=== PATIENT | female | born 1990 | race Caucasian/White ===

== ENCOUNTER 2020-03-17 10:59 | Emergency (ER) | payer OTHER ==
[2020-03-17 11:13] VITALS: BP 132/61; PULSE 89; TEMP 99; BMI 35.0
[2020-03-17] MEDS ORDERED: ONDANSETRON 4 MG/2 ML VIAL IVPUSH ONE (11:26)
[2020-03-17] MEDS ORDERED: ONDANSETRON 4 MG/2 ML VIAL ONE (11:27)
[2020-03-17] MEDS ORDERED: SODIUM CHLORIDE 0.9% 500 ML INFUS.BAG IV ONE (11:27)
[2020-03-17 11:56] LABS: BASO % 0.4 % (0-2.0); HEMATOCRIT 35.6 % (32.4-45.2); HEMOGLOBIN 11.7 GM/dL (10.7-15.3); LYMPH % 7.7 % (8-40); MCH 27.3 pg (25.7-33.7); MCHC 32.9 g/dl (32.0-36.0); MEAN PLT VOLUME 9.4 fl (7.5-11.1); NEUT % 83.9 % (42.8-82.8); PLATELET COUNT 184 K/MM3 (134-434); RBC 4.29 M/mm3 (3.60-5.2); RDW 13.3 % (11.6-15.6); WHITE BLOOD COUNT 6.3 K/mm3 (4.0-10.0)
[2020-03-17 11:57] LABS: URINE APPEARANCE CLEAR; URINE BILIRUBIN NEGATIVE (NEGATIVE); URINE COLOR YELLOW; URINE GLUCOSE (UA) NEGATIVE (NEGATIVE); URINE KETONE NEGATIVE (NEGATIVE); URINE LEUK ESTERASE NEGATIVE (NEGATIVE); URINE NITRITE NEGATIVE (NEGATIVE); URINE PROTEIN NEGATIVE (NEGATIVE); URINE UROBILINOGEN 0.2 mg/dL (0.2-1.0)
[2020-03-17 12:21] LABS: ALBUMIN 4.2 g/dl (3.4-5.0); BILIRUBIN,TOTAL 0.6 mg/dL (0.2-1); BLOOD UREA NITROGEN 13.8 mg/dL (7-18); CALCIUM 9.5 mg/dL (8.5-10.1); CREATININE 0.8 mg/dL (0.55-1.3); POTASSIUM 3.8 mmol/L (3.5-5.1); TOT PROT 7.8 g/dl (6.4-8.2)
--- NOTE | 2020-03-17 12:54 | PDOC ---
History of Present Illness - General Chief Complaint: Nausea Stated Complaint: NAUSEA Time Seen by Provider: 03/17/20 11:16 - History of Present Illness Initial Comments: 03/17/20 12:52 29-year-old female with a psych history presents for evaluation of nausea x3 days with intermittent episodes of vomiting. She takes at home Zofran prescribed to her by her primary care physician. She is had 2 or 3 episodes of diarrhea over the last few days as well. Minimal relief with Zofran at home. No systemic symptoms Past History - Medical History Allergies/Adverse Reactions: Allergies Allergy/AdvReac Type Severity Reaction Status Date / Time haloperidol [From Haldol] AdvReac Severe Difficulty Verified 03/17/20 11:12 Breathing haloperidol lactate AdvReac Severe Difficulty Verified 03/17/20 11:12 [From Haldol] Breathing Home Medications: Ambulatory Orders Aripiprazole [Abilify Maintena] 1 vial IM MONTHLY 03/21/16 Bictegrav/Emtricit/Tenofov Ala [Biktarvy 50-200-25 mg Tablet] 1 tab PO DAILY #30 tablet 12/05/19 Bisacodyl [Dulcolax -] 1 - 3 cap PO HS #30 tablet. MDD 3 12/05/19 Ferrous Sulfate 1 tab PO TID #90 tablet 12/05/19 Ondansetron [Zofran -] 1 tab PO DAILY #30 tablet 12/05/19 Anemia: Yes Asthma: No Cancer: No Cardiac Disorders: No CVA: No COPD: No CHF: No Dementia: No Diabetes: No GI Disorders: No Disorders: No HTN: No Hypercholesterolemia: No Liver Disease: No Psychiatric Problems: Yes (bipolar) Seizures: No Thyroid Disease: No - Psycho-Social/Smoking History Smoking History: Never smoked Have you smoked in the past 12 months: No Number of Cigarettes Smoked Daily: 1 If you are a former smoker, when did you quit?: 2013 Cigars Per Day: 0 Review of Systems - Review of Systems Constitutional: No: Chills, Diaphoresis, Fever, Night Sweats ABD/GI: Yes: Diarrhea, Nausea, Poor Appetite, Vomiting. No: Blood Streaked Bowels, Rectal Bleeding *Physical Exam - Vital Signs Last Vital Signs Temp Pulse Resp BP Pulse Ox 99.0 F 89 18 132/61 98 03/17/20 11:10 03/17/20 11:10 03/17/20 11:10 03/17/20 11:10 03/17/20 11:10 - Physical Exam 03/17/20 12:53 GENERAL: The patient is awake, alert, and fully oriented, in no acute distress. HEAD: Normal with no signs of trauma. EYES: sclera anicteric, conjunctiva clear. ENT: Ears normal tympanic membranes normal oropharynx clear uvula midline NECK: Normal range of motion LUNGS: Breath sounds equal, clear to auscultation bilaterally. No wheezes, and no crackles. HEART: S1 and S2 without murmur, rub or gallop. ABDOMEN: Soft, nontender, normoactive bowel sounds. No guarding, no rebound. No masses. EXTREMITIES: Normal range of motion, no edema. No clubbing or cyanosis. No cords, erythema, or tenderness. NEUROLOGICAL: Cranial nerves II through XII grossly intact. PSYCH: Normal mood, normal affect. SKIN: Warm, Dry, normal turgor, no rashes or lesions noted. ED Treatment Course - LABORATORY CBC & Chemistry Diagram: 03/17/20 11:38 03/17/20 11:38 - ADDITIONAL ORDERS Additional order review: Laboratory Results 03/17/20 03/17/20 03/17/20 11:38 11:38 11:38 Sodium 136 Potassium 3.8 Chloride 105 Carbon Dioxide 26 Anion Gap 4 L BUN 13.8 Creatinine 0.8 Est GFR (CKD-EPI)AfAm 113.86 Est GFR (CKD-EPI)NonAf 98.24 Random Glucose 90 Calcium 9.5 Total Bilirubin 0.6 AST 14 L ALT 28 Alkaline Phosphatase 71 Total Protein 7.8 Albumin 4.2 Lipase 97 Serum , Qual Negative Urine Color Yellow Urine Appearance Clear Urine pH 5.0 Ur Specific [place] 1.009 L Urine Protein Negative Urine Glucose (UA) Negative Urine Ketones Negative Urine Blood Negative Urine Nitrite Negative Urine Bilirubin Negative Urine Urobilinogen 0.2 Ur Leukocyte Esterase Negative 03/17/20 11:38 RBC 4.29 MCV 83.0 MCHC 32.9 RDW 13.3 MPV 9.4 D Neutrophils % 83.9 H Lymphocytes % 7.7 L D Monocytes % 7.0 Eosinophils % 1.0 Basophils % 0.4 - Medications Given in the ED: ED Medications Discontinued Medications Generic Name Dose Route Start Last Admin Trade Name Freq PRN Reason Stop Dose Admin Ondansetron HCl 4 mg 03/17/20 11:26 03/17/20 11:37 Zofran Injection IVPUSH 03/17/20 11:27 4 mg ONCE ONE Administration Sodium Chloride 1,000 ml 03/17/20 11:27 03/17/20 11:37 Normal Saline - IV 03/17/20 11:28 1,000 ml ONCE ONE Administration Medical Decision Making - Medical Decision Making 03/17/20 12:53 Benign examination most likely a viral gastroenteritis supportive care with fluids and Zofran at home. Follow-up with primary care physician. I have reviewed the pathophysiology with the patient. They are in agreement with the treatment plan all questions were answered to their satisfaction. Understanding for follow-up without fail was also conveyed to the patient. Again they are in agreement. Discharge - Discharge Information Problems reviewed: Yes Clinical Impression/Diagnosis: Gastroenteritis Condition: Stable - Admission No - Follow up/Referral Referrals: Marissa Molina MD [Staff Physician] - - Patient Discharge Instructions Additional Instructions: Return to the emergency room for worsening symptoms. Please without fail follow-up with your primary care physician in 1 to 2 days for further evaluation and treatment options. Clear fluids and bland diet until symptoms subside. Continue with your at home Zofran as prescribed by your primary care physician. - Post Discharge Activity
== END 2020-03-17 13:00 | disposition home or self-care (01) ==
LOC: JER 10:59
PROC: 3E033GC Introduction of Other Therapeutic Substance into Peripheral Vein, Percutaneous Approach (ICD-10-PCS; principal; 2020-03-17)
DX: K52.9 Noninfective gastroenteritis and colitis, unspecified (principal)
CPT/HCPCS: 36415; 80053; 81003; 83690; 84703; 85025; 87086; 99284-25

== ENCOUNTER 2020-03-19 05:50 | Emergency (ER) | payer OTHER ==
[2020-03-19 06:16] VITALS: BMI 35.5
[2020-03-19] MEDS ORDERED: ACETAMINOPHEN 1000 MG/100 ML VIAL (NON FORMULARY) IVPB ONE (07:33)
[2020-03-19] MEDS ORDERED: SODIUM CHLORIDE 1,000 ML IV STA (07:33)
[2020-03-19] MEDS ORDERED: ACETAMINOPHEN INJECTION 100 ML IVPB ONE (07:43)
[2020-03-19] MEDS ORDERED: FAMOTIDINE 20 MG/50 ML IVPB 20 MG/50 ML MG IVPB ONE (07:55)
[2020-03-19 07:59] LABS: BASO % 0.5 % (0-2.0); EOS % 0.4 % (0-4.5); HEMATOCRIT 37.4 % (32.4-45.2); HEMOGLOBIN 12.7 GM/dL (10.7-15.3); MCH 28.5 pg (25.7-33.7); MCHC 34.1 g/dl (32.0-36.0); MEAN CELL VOLUME 83.6 fl (80-96); MEAN PLT VOLUME 9.5 fl (7.5-11.1); MONO % 5.1 % (3.8-10.2); PLATELET COUNT 162 K/MM3 (134-434); RBC 4.47 M/mm3 (3.60-5.2); RDW 13.5 % (11.6-15.6); WHITE BLOOD COUNT 6.5 K/mm3 (4.0-10.0)
--- NOTE | 2020-03-19 08:06 | PDOC ---
History of Present Illness - General Chief Complaint: Cold Symptoms Stated Complaint: FEVER Time Seen by Provider: 03/19/20 07:25 - History of Present Illness Initial Comments: 29 yo female with PMH of HIV (CD4 count she believes in 300s prior note says 400s), Bipolar disorder, and prior coming in with fever for the past two days. Pt explains she was in the ED two days ago for nausea and vomitting, was diagnosed with gastroenteritis, and felt better and went home. That night she says that she had a fever of 101.7 with copious diarrhea. Pt also explains that she had ten episodes of yellow billious diarrea last night, but denies black stool, bloody stool, abdominal pain or any episodes of emesis since Sun. Pt has taken motrin for sxs but she states that her sxs have not improved. Pt also explains that she has had a COVID test yday to rule out COVID but will only get results in five days. Pt denies chest pain, sick contacts, SOB, dyspnea on exertion, cough, or current emesis. PMH: HIV Bipolar PSH: (3 years ago) Allergies: Haldol (tardive dyskinesia) Social: rare alcohol use, denies smoking or drugs; pt practices sex only with fiance PCP: Dr. Maria L Hernández 03/19/20 07:58 Past History - Medical History Allergies/Adverse Reactions: Allergies Allergy/AdvReac Type Severity Reaction Status Date / Time haloperidol [From Haldol] AdvReac Severe Difficulty Verified 03/19/20 06:08 Breathing haloperidol lactate AdvReac Severe Difficulty Verified 03/19/20 06:08 [From Haldol] Breathing Home Medications: Ambulatory Orders Aripiprazole [Abilify Maintena] 1 vial IM MONTHLY 03/21/16 Bictegrav/Emtricit/Tenofov Ala [Biktarvy 50-200-25 mg Tablet] 1 tab PO DAILY #30 tablet 12/05/19 Bisacodyl [Dulcolax -] 1 - 3 cap PO HS #30 tablet.dr GODDARD 3 12/05/19 Ferrous Sulfate 1 tab PO TID #90 tablet 12/05/19 Ondansetron [Zofran -] 1 tab PO DAILY #30 tablet 12/05/19 Famotidine [Pepcid] 20 mg PO DAILY 14 Days #14 tablet 03/19/20 Anemia: Yes Asthma: No Cancer: No Cardiac Disorders: No CVA: No COPD: No CHF: No Dementia: No Diabetes: No GI Disorders: No Disorders: No HTN: No Hypercholesterolemia: No Liver Disease: No Psychiatric Problems: Yes (bipolar) Seizures: No Thyroid Disease: No - Immunization History Immunization Up to Date: Yes - Psycho-Social/Smoking History Smoking History: Never smoked Have you smoked in the past 12 months: No Number of Cigarettes Smoked Daily: 1 If you are a former smoker, when did you quit?: 2012 Cigars Per Day: 0 Information on smoking cessation initiated: No - Substance Abuse Hx (Audit-C & DAST Scrn) How often the patient has a drink containing alcohol: Never Score: In Men: 4 or > Positive; In Women: 3 or > Positive: 0 Screen Result (Pos requires Nsg. Audit-10AR): Negative In the last yr the pt used illegal drug/Rx for NonMed reason: No Score: Yes response is considered Positive: 0 Screen Result (Positive result requires Nsg. DAST-10): Negative Review of Systems - Review of Systems Comments:: General: FEVER HEENT: No change in vision. NO ear pain or discharge. No sore throat. No rhinorrhea CV: NO chest pain, SOB Resp: No cough, wheeze, or hemoptysis GI: No current nausea or vomittting. Positive for diarrhea : No dysuria, frequency or change in urination MSK: NO joint or muscle swelling pain. NO neck or back pain Endocrine: No change in weight Hematological: NO history of blood clots Skin: no rashes 03/19/20 08:06 *Physical Exam - Vital Signs Last Vital Signs Temp Pulse Resp BP Pulse Ox 101.0 F H 122 H 20 124/73 100 03/19/20 06:09 03/19/20 06:09 03/19/20 06:09 03/19/20 06:09 03/19/20 06:09 - Physical Exam General: Awake, alert, and in NAD Head: NCAT Eyes: PERRLA EOMI ENT: hearing grossly intact, dry mucosa Neck: Normal ROM, Lungs: CTA bilaterally no wheezes rales or rhonci Heart: Normal S1 S2 no murmurs rubs or gallops Adomen: Normal bowel sounds in all four quadrants. MILD TENDERNESS to palpation on epigastric area Ext: Normal ROM, NO edema, clubbing or cyanosis NEURO: CN 2-12 grossly intact. Normal speech normal gait Skin. Warm dry no rashes 03/19/20 08:10 ED Treatment Course - LABORATORY CBC & Chemistry Diagram: 03/19/20 06:37 03/19/20 06:37 - Medications Given in the ED: ED Medications Discontinued Medications Generic Name Dose Route Start Last Admin Trade Name Claudia PRN Reason Stop Dose Admin Acetaminophen 1,000 mg 03/19/20 07:33 03/19/20 07:49 Ofirmev Injection - IVPB 03/19/20 07:34 1,000 mg ONCE ONE Administration Medical Decision Making - Medical Decision Making Assesment: Gastroenteritis COVID UTI cholecystitis Plan: CBC CMP Blood cultures UA CXR 29 yo pmh HIV, bipolar and C section complaining of fever and diarrhea for past two days. Pt will be given full sepsis workup, give tylenol, fluids, and pepcid. Will recheck labs and reasses pt. 03/19/20 09:13 Pt labs came back normal. Pt is stable, feels better, was able to tolerate PO challenge, and is ready for discharge. Informed of all lab results. Given follow up instructions and strict return precautions. Patient expressed understanding and agreed to plan. Discharge - Discharge Information Problems reviewed: Yes Clinical Impression/Diagnosis: Generalized abdominal pain Nausea & vomiting Qualifiers: Vomiting type: unspecified Vomiting Intractability: non-intractable Qualified Code(s): R11.2 - Nausea with vomiting, unspecified Condition: Improved Disposition: HOME - Admission No - Additional Discharge Information Prescriptions: Famotidine [Pepcid] 20 mg PO DAILY 14 Days #14 tablet - Follow up/Referral Referrals: Mary Hernández, FORENSIC SCIENCE TECHNICIAN [Primary Care Provider] - - Patient Discharge Instructions Patient Printed Discharge Instructions: [facility] COVID-19 Isolation Protocol, Viral Gastroenteritis Additional Instructions: You were seen in the ED for complaints of fever and diarrhea In the ED you were evaluated with CBC, CMP, UA and Blood culture. You were also given pepcid and tylenol. There does not appear to be an acute need for immediate hospitalization. For you fever take 325 mg-1000mg every 6-8hrs as needed max 4000mg/24 hours For stomach pain take Pepcid (famotidine) 20mg will give you prescription for you to knot picker cloth at pharmacy You are advised to follow up with you PCP within 1 week. Return to the ED - intractable vomitting - Stiff neck - unable to tolerate food or water - blood in emesis or bowel movements - severe headache - Chest pain or SOB If you think you have an emergency call for medical help right away; - Post Discharge Activity
[2020-03-19 08:08] LABS: EPI CELLS >36 /uL (0-25.1); HYALINE CASTS 2 /uL (0-3.1); URINE APPEARANCE CLOUDY; URINE BACTERIA 711 /uL (0-1359); URINE BILIRUBIN NEGATIVE (NEGATIVE); URINE COLOR YELLOW; URINE GLUCOSE (UA) NEGATIVE (NEGATIVE); URINE KETONE NEGATIVE (NEGATIVE); URINE LEUK ESTERASE TRACE (NEGATIVE); URINE NITRITE NEGATIVE (NEGATIVE); URINE PROTEIN TRACE (NEGATIVE); URINE RBC 5 /uL (0-23.9); URINE UROBILINOGEN 0.2 mg/dL (0.2-1.0); URINE WBC 16 /uL (0-25.8)
--- NOTE | 2020-03-19 08:13 | PDOC ---
Attending Attestation - Resident Resident Name: GersonferozJama - ED Attending Attestation I have performed the following: I have examined & evaluated the patient, The case was reviewed & discussed with the resident, I agree w/resident's findings & plan, Exceptions are as noted - HPI HPI: 03/19/20 08:14 29y F hx of HIV (CD4 in 300s VRL undetectable), bipolar do presens with complaint of fever x 2 days. pt notes n/v jocelyn started appox 1 week ago followed by diarhea and fever the last 3 days. The patient has had no known sick contacts or recent travel or family members have been healthy. Patient denies any other symptoms including chest pain, shortness of breath, abdominal pain, blood per rectum, melena, dysuria, urinary frequency. Patient has been taking Motrin for her fever without significant improvement. Patient had seen her doctor at [facility] and had a COVID test yesterday but does not yet know the results. - Physicial Exam PE: 03/19/20 08:16 Exam GENERAL: The patient is awake, alert, and fully oriented, Nontoxic - in no acute distress. HEAD: Normocephalic, atraumatic. EYES: extraocular movements intact, sclera anicteric, conjunctiva clear. ENT: Normal voice, Moist mucous membranes. NECK: Normal range of motion, supple LUNGS: Breath sounds equal, clear to auscultation bilaterally. No wheezes, no rhonchi, no rales. HEART: slightly tachycardic, normal S1 and S2 without murmur, rub or gallop. ABDOMEN: Soft, nontender, No guarding, no rebound. No CVA tenderness EXTREMITIES: Normal range of motion, no edema. NEUROLOGICAL: No facial assymetry, Normal speech, PSYCH: Normal mood, normal affect. SKIN: hot to touch, Dry, normal turgor, - Medical Decision Making 03/19/20 08:16 suspect gastroenteritis. pt appears well otherwise. covid testing from the [facility] from yesterday no abd tendenress to suggest acute intrabdominal surgical process will give tlenol/fluids for sx releif screening labs will reassess 03/19/20 08:20 03/19/20 09:07 pts labs reviewed ua likel contaminated - no urinary sx, and high epitihelial cells. will reasess, po challenge, if tolerates anticipate dc with outptient fu Discharge - Discharge Information Problems reviewed: Yes Clinical Impression/Diagnosis: Generalized abdominal pain Nausea & vomiting Qualifiers: Vomiting type: unspecified Vomiting Intractability: non-intractable Qualified Code(s): R11.2 - Nausea with vomiting, unspecified Condition: Improved Disposition: HOME - Additional Discharge Information Prescriptions: Famotidine [Pepcid] 20 mg PO DAILY 14 Days #14 tablet - Follow up/Referral Referrals: Mary Hernández, HR ANALYST [Primary Care Provider] - - Patient Discharge Instructions Patient Printed Discharge Instructions: Viral Gastroenteritis, [facility] COVID-19 Isolation Protocol Additional Instructions: You were seen in the ED for complaints of fever and diarrhea In the ED you were evaluated with CBC, CMP, UA and Blood culture. You were also given pepcid and tylenol. There does not appear to be an acute need for immediate hospitalization. For you fever take 325 mg-1000mg every 6-8hrs as needed max 4000mg/24 hours For stomach pain take Pepcid (famotidine) 20mg will give you prescription for you to leaf size picker at pharmacy You are advised to follow up with you PCP within 1 week. Return to the ED - intractable vomitting - Stiff neck - unable to tolerate food or water - blood in emesis or bowel movements - severe headache - Chest pain or SOB If you think you have an emergency call for medical help right away; - Post Discharge Activity
[2020-03-19 08:29] LABS: ALBUMIN 4.1 g/dl (3.4-5.0); BILIRUBIN,TOTAL 0.6 mg/dL (0.2-1); BLOOD UREA NITROGEN 10.9 mg/dL (7-18); CALCIUM 8.8 mg/dL (8.5-10.1); CREATININE 0.9 mg/dL (0.55-1.3); POTASSIUM 3.8 mmol/L (3.5-5.1); TOT PROT 8.1 g/dl (6.4-8.2)
[2020-03-19 09:14] VITALS: BP 108/60; PULSE 83; TEMP 98.3
== END 2020-03-19 10:18 | disposition home or self-care (01) ==
LOC: JER 05:50
PROC: 3E033NZ Introduction of Analgesics, Hypnotics, Sedatives into Peripheral Vein, Percutaneous Approach (ICD-10-PCS; principal; 2020-03-19)
PROC: 3E033GC Introduction of Other Therapeutic Substance into Peripheral Vein, Percutaneous Approach (ICD-10-PCS; 2020-03-19)
PROC: 3E0337Z Introduction of Electrolytic and Water Balance Substance into Peripheral Vein, Percutaneous Approach (ICD-10-PCS; 2020-03-19)
DX: R10.84 Generalized abdominal pain (principal); R11.2 Nausea with vomiting, unspecified
CPT/HCPCS: 36415; 80053; 81003; 83605; 84703; 85025; 86850; 86900; 86901; 87040; 87086; 99285-25; J0131

== ENCOUNTER 2021-03-16 18:17 | Emergency (ER) | payer OTHER ==
[2021-03-16 18:23] VITALS: BP 144/74; PULSE 90; TEMP 98.4; BMI 37.4
[2021-03-16] MEDS ORDERED: KETOROLAC TROMETHAMINE 60 MG/2 ML VIAL IM ONE (18:54)
[2021-03-16] MEDS ORDERED: LIDOCAINE 5% TOPICAL PATCH TP ONE (18:55)
[2021-03-16] MEDS ORDERED: CYCLOBENZAPRINE HCL 10 MG TABLET (FP) PO ONE (18:55)
[2021-03-16] MEDS ORDERED: KETOROLAC TROMETHAMINE 30 MG/1 ML VIAL ONE (18:57)
[2021-03-16] MEDS ORDERED: CYCLOBENZAPRINE HCL 10 MG TABLET (FP) ONE (18:57)
== END 2021-03-16 20:10 | disposition home or self-care (01) ==
LOC: JERFT 18:17
PROC: 3E0233Z Introduction of Anti-inflammatory into Muscle, Percutaneous Approach (ICD-10-PCS; principal; 2021-03-16)
DX: M54.2 Cervicalgia (principal)
CPT/HCPCS: 72040-TC; 72070-TC-FY; 96372; 99284-25

== ENCOUNTER 2021-06-24 16:18 | Emergency (ER) | payer OTHER ==
[2021-06-24 16:40] VITALS: BP 126/82; PULSE 82; TEMP 98.6; BMI 36.3
== END 2021-06-24 18:34 | disposition home or self-care (01) ==
LOC: JER 16:18
DX: N93.9 Abnormal uterine and vaginal bleeding, unspecified (principal)
CPT/HCPCS: 99283-25

== ENCOUNTER 2022-04-17 04:18 | Day surgery (SDC) | payer OTHER ==
[2022-04-17] MEDS ORDERED: BUPIVACAINE HCL/PF 0.5% (5MG/ML) 10 ML VIAL ONE (13:41)
[2022-04-17] MEDS ORDERED: MIDAZOLAM HCL 2 MG/2 ML SINGLE DOSE VIAL ONE (15:55)
[2022-04-17] MEDS ORDERED: PROPOFOL 20 ML ONE ×2 (15:55→16:12)
[2022-04-17] MEDS ORDERED: ROCURONIUM BROMIDE 50 MG/5 ML SYRINGE ONE (15:55)
[2022-04-17] MEDS ORDERED: ceFAZolin SODIUM 1 GM VIAL IVPB ONE (16:20)
[2022-04-17] MEDS ORDERED: BUPIVACAINE HCL/PF 0.5% (5MG/ML) 10 ML VIAL IJ ONE (17:25)
[2022-04-17] MEDS ORDERED: ONDANSETRON 4 MG/2 ML VIAL IVPUSH PRN ×2 (17:36→17:50)
[2022-04-17] MEDS ORDERED: LACTATED RINGERS SOLUTION 1,000 ML IV SCH (17:45)
[2022-04-17] MEDS ORDERED: IBUPROFEN 800 MG/8 ML IJ IVPB PRN (17:50)
[2022-04-17] MEDS ORDERED: SIMETHICONE 80 MG TAB.CHEW (FP) PO PRN (17:50)
[2022-04-17] MEDS ORDERED: KETOROLAC TROMETHAMINE 30 MG/1 ML VIAL IVPUSH PRN (17:50)
[2022-04-17] MEDS ORDERED: oxyCODONE HCL 5 MG TABLET PO PRN (17:50)
[2022-04-17] MEDS ORDERED: ARIPIPRAZOLE IM SCH (18:00)
[2022-04-17 18:50] VITALS: RESP 18
[2022-04-17] MEDS: ACETAMINOPHEN 325 MG TABLET (FP) PO SCH (19:02)
[2022-04-17] MEDS ORDERED: ACETAMINOPHEN 325 MG TABLET (FP) PO SCH (20:00)
[2022-04-17] MEDS ORDERED: BICTEGRAV/EMTRICIT/TENOFOV (BIKTARVY) 50-200-25 MG TABLET PO SCH (22:00)
[2022-04-18 00:05] LABS: HEMATOCRIT 33.4 % (32.4-45.2); HEMOGLOBIN 11.6 GM/dL (10.7-15.3); MCH 29.7 pg (25.7-33.7); MCHC 34.9 g/dl (32.0-36.0); MEAN CELL VOLUME 85.3 fl (80-96); MEAN PLT VOLUME 9.3 fl (7.5-11.1); PLATELET COUNT 182 10^3/uL (134-434); RBC 3.91 M/mm3 (3.60-5.2); RDW 12.9 % (11.6-15.6); WHITE BLOOD COUNT 6.9 K/mm3 (4.0-10.0)
[2022-04-18] MEDS: ACETAMINOPHEN 500 MG TABLET (FP) PO SCH ×2 (00:24→05:50)
[2022-04-18 00:51] VITALS: BMI 35.2
[2022-04-18 07:05] VITALS: BP 104/46; PULSE 53; TEMP 98.4
[2022-04-18 11:20] LABS: HEMATOCRIT 34.3 % (32.4-45.2); HEMOGLOBIN 11.9 GM/dL (10.7-15.3); MCHC 34.7 g/dl (32.0-36.0); MEAN CELL VOLUME 86.4 fl (80-96); MEAN PLT VOLUME 9.3 fl (7.5-11.1); PLATELET COUNT 219 10^3/uL (134-434); RBC 3.97 M/mm3 (3.60-5.2); RDW 12.9 % (11.6-15.6); WHITE BLOOD COUNT 7.2 K/mm3 (4.0-10.0)
[2022-04-18] MEDS: ACETAMINOPHEN 325 MG TABLET (FP) PO SCH (11:48)
== END 2022-04-18 14:23 | disposition home or self-care (01) ==
LOC: JASU-SURG 04:18 → JASUSAT 04:18 → J6S 18:41 → JASUSAT 04-18 14:23
PROVIDERS: ATTEND Obstetrics & Gynecology
PROC: 0UB54ZX Excision of Right Fallopian Tube, Percutaneous Endoscopic Approach, Diagnostic (ICD-10-PCS; 2022-04-17)
PROC: 0UB64ZX Excision of Left Fallopian Tube, Percutaneous Endoscopic Approach, Diagnostic (ICD-10-PCS; principal; 2022-04-17 16:05)
DX: N83.02 Follicular cyst of left ovary (principal); N83.01 Follicular cyst of right ovary; Z21 Asymptomatic human immunodeficiency virus [HIV] infection status
CPT/HCPCS: 36415; 81025; 85027; 88305-TC; 94760

== ENCOUNTER 2023-05-01 14:25 | Emergency (ER) | payer OTHER ==
[2023-05-01 14:35] VITALS: BP 138/79; PULSE 118; TEMP 99.3; BMI 32.8
[2023-05-01] MEDS ORDERED: ACETAMINOPHEN 325 MG TABLET (FP) PO ONE (14:52)
[2023-05-01] MEDS ORDERED: ACETAMINOPHEN 500 MG TABLET (FP) ONE (14:53)
[2023-05-01 15:54] VITALS: RESP 96
== END 2023-05-01 16:12 | disposition home or self-care (01) ==
LOC: JER 14:25
DX: R50.9 Fever, unspecified (principal); R07.0 Pain in throat; R05.9 Cough, unspecified; R09.81 Nasal congestion; M79.10 Myalgia, unspecified site; R53.1 Weakness; U07.1 COVID-19
CPT/HCPCS: 99283-25

== ENCOUNTER 2023-06-13 18:32 | Emergency (ER) | payer OTHER ==
[2023-06-13 18:58] VITALS: BP 122/64; PULSE 74; RESP 18; TEMP 98; BMI 38.7
[2023-06-13 20:39] LABS: EOS % 2.5 % (0-4.5); HEMOGLOBIN 12.1 GM/dL (10.7-15.3); LYMPH % 22.1 % (8-40); MCH 31.2 pg (25.7-33.7); MCHC 35.6 g/dl (32.0-36.0); MEAN CELL VOLUME 87.6 fl (80-96); MEAN PLT VOLUME 9.4 fl (7.5-11.1); MONO % 7.9 % (3.8-10.2); NEUT % 66.5 % (42.8-82.8); PLATELET COUNT 219 10^3/uL (134-434); RBC 3.89 M/mm3 (3.60-5.2); RDW 13.2 % (11.6-15.6); WHITE BLOOD COUNT 6.2 K/mm3 (4.0-10.0)
[2023-06-13 20:50] LABS: POTASSIUM 3.7 mmol/L (3.5-5.1)
[2023-06-13 20:51] LABS: BLOOD UREA NITROGEN 15.4 mg/dL (7-18)
[2023-06-13 20:55] LABS: CREATININE 0.9 mg/dL (0.55-1.3)
[2023-06-13 21:27] LABS: PH,URINE 5.5 (5.0-8.0); URINE APPEARANCE CLEAR; URINE BILIRUBIN NEGATIVE (NEGATIVE); URINE COLOR YELLOW; URINE GLUCOSE (UA) NEGATIVE (NEGATIVE); URINE KETONE NEGATIVE (NEGATIVE); URINE LEUK ESTERASE NEGATIVE (NEGATIVE); URINE NITRITE NEGATIVE (NEGATIVE); URINE PROTEIN NEGATIVE (NEGATIVE); URINE UROBILINOGEN 0.2 mg/dL (0.2-1.0)
== END 2023-06-13 23:18 | disposition home or self-care (01) ==
LOC: JER 18:32
DX: K64.9 Unspecified hemorrhoids (principal)
CPT/HCPCS: 36415; 80048; 81003; 84703; 85025; 86850; 86900; 86901; 87086; 99283-25

== ENCOUNTER 2023-12-04 05:20 | Day surgery (SDC) | payer OTHER ==
[2023-11-30 12:48] VITALS: BMI 32.5
[2023-12-04 11:56] VITALS: TEMP 98.6
[2023-12-04 12:27] VITALS: BP 117/71; PULSE 86; RESP 18
== END 2023-12-04 13:30 | disposition home or self-care (01) ==
LOC: JASU-ENDO 05:20
PROVIDERS: ATTEND Internal Medicine Gastroenterology
PROC: 0DJD8ZZ Inspection of Lower Intestinal Tract, Via Natural or Artificial Opening Endoscopic (ICD-10-PCS; principal; 2023-12-04 11:30)
DX: K64.8 Other hemorrhoids (principal); K64.4 Residual hemorrhoidal skin tags
CPT/HCPCS: 81025; 82962

== ENCOUNTER 2024-02-25 04:23 | Day surgery (SDC) | payer OTHER ==
[2024-02-20 12:24] VITALS: BMI 33.7
[2024-02-25] MEDS: BUPIVACAINE HCL/PF 0.5% (5 MG/ML) 30 ML VIAL IJ ONE
[2024-02-25] MEDS ORDERED: DEXAMETHASONE SOD PHOSPHATE 4 MG/1 ML VIAL ONE (07:16)
[2024-02-25] MEDS ORDERED: ceFAZolin SODIUM 1 GM VIAL ONE (07:16)
[2024-02-25] MEDS ORDERED: KETOROLAC TROMETHAMINE 30 MG/1 ML VIAL ONE (07:16)
[2024-02-25] MEDS ORDERED: SODIUM CHLORIDE 0.9% P/F 10 ML VIAL IJ ONE (07:16)
[2024-02-25] MEDS ORDERED: METOCLOPRAMIDE HCL INJECTION 10 MG/2 ML VIAL ONE (07:16)
[2024-02-25] MEDS ORDERED: ONDANSETRON 4 MG/2 ML VIAL ONE (07:16)
[2024-02-25] MEDS ORDERED: LIDOCAINE HCL/PF 2% SDV 5ML VIAL ONE (07:16)
[2024-02-25] MEDS ORDERED: ROCURONIUM BROMIDE 50 MG/5 ML SYRINGE ONE (07:19)
[2024-02-25] MEDS ORDERED: PROPOFOL 20 ML ONE ×2 (07:21→08:59)
[2024-02-25] MEDS ORDERED: oxyCODONE HCL 5 MG TABLET PO PRN (07:37)
[2024-02-25] MEDS ORDERED: ONDANSETRON 4 MG/2 ML VIAL IVPUSH PRN (07:37)
[2024-02-25] MEDS ORDERED: LACTATED RINGERS SOLUTION 1,000 ML IV SCH (07:45)
[2024-02-25] MEDS ORDERED: BUPIVACAINE HCL/PF 0.5% (5MG/ML) 10 ML VIAL ONE (07:46)
[2024-02-25] MEDS ORDERED: FENTANYL CITRATE/PF 50 MCG/ML VIAL ONE (07:49)
[2024-02-25] MEDS ORDERED: MIDAZOLAM HCL 2 MG/2 ML SINGLE DOSE VIAL ONE (07:49)
[2024-02-25] MEDS ORDERED: INDOCYANINE GREEN 25 MG/10 ML VIAL IVPUSH ONE (07:49)
[2024-02-25] MEDS ORDERED: LIDOCAINE 1%/EPI 1:100000 (20 ML MULTI DOSE VIAL) ONE (07:50)
[2024-02-25] MEDS: ceFAZolin SODIUM 1 GM VIAL IVPB ONE (08:05)
[2024-02-25] MEDS ORDERED: ACETAMINOPHEN INJECTION 100 ML IVPB ONE (08:17)
[2024-02-25] MEDS ORDERED: HYDROmorphone HCl 2 MG/ML VIAL ONE (08:31)
[2024-02-25] MEDS ORDERED: GLYCOPYRROLATE 0.2 MG/1 ML VIAL ONE (08:33)
[2024-02-25] MEDS ORDERED: SUGAMMADEX SODIUM 200 MG/2 ML VIAL ONE (08:57)
[2024-02-25 10:39] VITALS: RESP 16
[2024-02-25 12:02] VITALS: BP 129/56; PULSE 73; TEMP 97.1
== END 2024-02-25 12:00 | disposition home or self-care (01) ==
LOC: JASU-SURG 04:23
PROVIDERS: ATTEND Obstetrics & Gynecology
PROC: 0UB24ZZ Excision of Bilateral Ovaries, Percutaneous Endoscopic Approach (ICD-10-PCS; principal; 2024-02-25 07:30)
DX: N83.02 Follicular cyst of left ovary (principal)
CPT/HCPCS: 81025; 86850; 86900; 86901; 88305-TC; 94760; J0131

== ENCOUNTER 2024-12-12 16:59 | Emergency (ER) | payer OTHER ==
[2024-12-12 17:07] VITALS: BP 134/62; PULSE 81; RESP 18; TEMP 98.7; BMI 35.7
[2024-12-12] MEDS ORDERED: ACETAMINOPHEN INJECTION 100 ML ONE (18:40)
[2024-12-12 18:59] LABS: EPI CELLS 3 /uL (0-25.1); HYALINE CASTS 1 /uL (0-3.1); PH,URINE 6.5 (5.0-8.0); URINE APPEARANCE CLEAR; URINE BACTERIA 88 /uL (0-1359); URINE BILIRUBIN NEGATIVE (NEGATIVE); URINE COLOR YELLOW; URINE GLUCOSE (UA) NEGATIVE (NEGATIVE); URINE KETONE NEGATIVE (NEGATIVE); URINE LEUK ESTERASE NEGATIVE (NEGATIVE); URINE NITRITE NEGATIVE (NEGATIVE); URINE PROTEIN NEGATIVE (NEGATIVE); URINE RBC 13 /uL (0-23.9); URINE UROBILINOGEN 0.2 mg/dL (0.2-1.0); URINE WBC 3 /uL (0-25.8)
[2024-12-12] MEDS: ACETAMINOPHEN 1000 MG/100 ML BAG IVPB ONE (18:59)
[2024-12-12] MEDS: SODIUM CHLORIDE 0.9% 500 ML INFUS.BAG IV ONE (18:59)
[2024-12-12 19:05] LABS: ABSOLUTE IMMATURE GRANULOCYTES 0.01 x10^3/uL (0.0-0.031); BASOPHILS # 0.03 x10^3/uL (0.01-0.08); EOSINOPHIL % 1.4 % (0.7-5.8); EOSINOPHILS # 0.07 x10^3/uL (0.04-0.36); HEMATOCRIT 34.2 % (34.1-44.9); HEMOGLOBIN 11.7 g/dL (11.2-15.7); MCHC 34.2 g/dl (32.2-35.5); MEAN CELL VOLUME 88.6 fl (79.4-94.8); MEAN PLT VOLUME 11.2 fl (9.4-12.3); MONOCYTE # 0.38 x10^3/uL (0.24-0.86); MONOCYTE % 7.6 % (4.7-12.5); PLATELET COUNT 283 x10^3/uL (182-369); RDW 11.3 % (12.1-16.8)
[2024-12-12 19:33] LABS: POTASSIUM 4.2 mmol/L (3.5-5.1)
[2024-12-12 19:34] LABS: ALBUMIN 3.8 g/dl (3.4-5.0); CALCIUM 9.6 mg/dL (8.5-10.1)
[2024-12-12 19:36] LABS: BLOOD UREA NITROGEN 12.3 mg/dL (7-18)
[2024-12-12 19:39] LABS: BILIRUBIN,TOTAL 0.3 mg/dL (0.2-1); CREATININE 0.9 mg/dL (0.55-1.3); TOT PROT 7.7 g/dl (6.4-8.2)
== END 2024-12-12 20:34 | disposition home or self-care (01) ==
LOC: JER 16:59
PROC: 3E033NZ Introduction of Analgesics, Hypnotics, Sedatives into Peripheral Vein, Percutaneous Approach (ICD-10-PCS; principal; 2024-12-12)
DX: N93.9 Abnormal uterine and vaginal bleeding, unspecified (principal); R10.31 Right lower quadrant pain; R10.32 Left lower quadrant pain
CPT/HCPCS: 36415; 80053; 81003; 84703; 85025; 86850; 86900; 86901; 87086; 96374; 99284-25; J0131